=== PATIENT | female | born 1995 | race Two or more races ===

== ENCOUNTER 2021-11-02 16:49 | Emergency (ER) | payer OTHER ==
[~2021-11-02] VITALS: Ht 162.6 cm; Wt 54.4 kg
[~2021-11-02 16:49] MED LIST: PRENATAL CAPSU1 EACH; SYNTHROID88 MCG
[2021-11-02] MEDS ORDERED: KEPPRA500 MG (17:15)
[2021-11-02] MEDS ORDERED: CIPRO500 MG PO (20:10)
== END 2021-11-02 20:19 | disposition home or self-care (01) ==
LOC: ER 16:49
DX: G40.909 Epilepsy, unspecified, not intractable, without status epilepticus (principal); N39.0 Urinary tract infection, site not specified